=== PATIENT | male | born 1965 | race Caucasian/White ===

== ENCOUNTER 2017-12-20 17:42 | Emergency (ER) | payer MEDICAID ==
[~2017-12-20] VITALS: Ht 180.3 cm; Wt 105.8 kg
[2017-12-20 17:51] VITALS: BP 145/95
== END 2017-12-20 19:38 | disposition home or self-care (01) ==
LOC: ED 19:32
DX: M25.521 Pain in right elbow (principal); G62.9 Polyneuropathy, unspecified; I10 Essential (primary) hypertension; I82.411 Acute embolism and thrombosis of right femoral vein
CPT/HCPCS: 99284

== ENCOUNTER 2019-02-12 08:39 | Observation (INO) | payer MEDICAID ==
[~2019-02-12] VITALS: Ht 177.8 cm; Wt 111.6 kg
--- NOTE | 2019-02-12 08:59 | NUR ---
YESTERDAY AWOKE FEELING SOB AND HAD TWO BRIEF EPISODES OF SHARP LEFT CHEST PAIN WITH NUMBNESS AND TINGLING ARMS. NO COMPLAINTS AT THIS TIME
[2019-02-12] MEDS ORDERED: METO200T47 PO (09:00)
[2019-02-12] MEDS ORDERED: ASPIRIN 81 MG TABLET CHEW ONE (09:24)
[2019-02-12] MEDS ORDERED: ASPIRIN 81 MG TABLET CHEW PO ONE (09:30)
[2019-02-12 09:59] LABS: BASOPHILS # (AUTO) 0.02 x10^3/uL (0-0.1); BASOPHILS % (AUTO) 0 % (0-1); EOSINOPHILS # (AUTO) 0.26 x10^3/uL (0-0.4); EOSINOPHILS % (AUTO) 4 % (1-7); LYMPHOCYTES # (AUTO) 2.23 x10^3/uL (1-3.4); LYMPHOCYTES % (AUTO) 31 % (22-44); MD NO; MEAN CORPUSCULAR HEMOGLOBIN 32.8 pg (27.5-34.5); MEAN CORPUSCULAR HGB CONC 32.7 g/dL (33.2-36.2); MEAN CORPUSCULAR VOLUME 100.4 fL (81-97); MONOCYTES % (AUTO) 8 % (2-9); NEUTROPHILS # (AUTO) 4.08 x10^3/uL (1.8-6.8); NEUTROPHILS % (AUTO) 57 % (42-75); PLATELET COUNT 168 x10^3/uL (130-400); RED BLOOD COUNT 5.28 x10^6/uL (4.38-5.82); RED CELL DISTRIBUTION WIDTH 12.9 % (9.4-14.8)
--- NOTE | 2019-02-12 10:16 | NUR ---
CONTINUE TO MONITOR PT. NO CP AT THIS TIME
[2019-02-12 10:30] LABS: ALBUMIN 3.7 g/dL (3.4-5.0); ANION GAP 5 mmol/L (5-15); CALCIUM 8.8 mg/dL (8.5-10.1); CHLORIDE 107 mmol/L (98-107); CREATININE 0.76 mg/dL (0.7-1.3)
[2019-02-12 10:45] LABS: TROPONIN I < 0.015 ng/mL (0.000-0.045)
--- NOTE | 2019-02-12 11:31 | NUR ---
RESTING WITH EYES CLOSED
--- NOTE | 2019-02-12 12:03 | NUR ---
REPORT TO [facility]. TO BE TRANSPORTED TO FLOOR
[2019-02-12 12:31] VITALS: BP 132/86
[2019-02-12] MEDS ORDERED: ENOXAPARIN 40 MG/0.4 ML SQ SCH (13:30)
[2019-02-12] MEDS ORDERED: LABETALOL 5 MG/ML SYRINGE IVPush PRN (13:30)
[2019-02-12] MEDS ORDERED: ONDANSETRON 2MG/ML, 2ML IVPush PRN (13:30)
[2019-02-12] MEDS ORDERED: ONDANSETRON ODT 4 MG PO PRN (13:30)
[2019-02-12] MEDS ORDERED: METO25TA4 PO (13:41)
[2019-02-12 14:46] LABS: FREE T4 (FREE THYROXINE) 0.87 ng/dL (0.76-1.46)
[2019-02-12] MEDS ORDERED: POTASSIUM CHLORIDE 20 MEQ, MAGNESIUM SULFATE 1 GM, FOLIC ACID 1 MG, THIAMINE 200 MG, MV... IV SCH (15:30)
[2019-02-12 16:09] LABS: TROPONIN I < 0.015 ng/mL (0.000-0.045)
[2019-02-12 19:13] VITALS: BP_SYST 133; BP_SYST 142; BP_DIAS 84; BP_DIAS 87
[2019-02-12] MEDS ORDERED: FAMOTIDINE 20 MG/2 ML IVPush SCH (21:00)
[2019-02-12] MEDS: FAMOTIDINE 20 MG TABLET PO SCH (21:09)
[2019-02-12 21:36] LABS: TROPONIN I < 0.015 ng/mL (0.000-0.045)
[2019-02-13] MEDS ORDERED: MELA10TA7 PO (00:48)
[2019-02-13] MEDS ORDERED: MELATONIN 5 MG TABLET PO PRN (01:00)
[2019-02-13 01:14] VITALS: BP 128/78
[2019-02-13 05:18] LABS: BASOPHILS # (AUTO) 0.03 x10^3/uL (0-0.1); BASOPHILS % (AUTO) 0 % (0-1); EOSINOPHILS # (AUTO) 0.28 x10^3/uL (0-0.4); EOSINOPHILS % (AUTO) 4 % (1-7); LYMPHOCYTES # (AUTO) 2.55 x10^3/uL (1-3.4); LYMPHOCYTES % (AUTO) 32 % (22-44); MD NO; MEAN CORPUSCULAR HEMOGLOBIN 33.5 pg (27.5-34.5); MEAN CORPUSCULAR HGB CONC 33.4 g/dL (33.2-36.2); MEAN CORPUSCULAR VOLUME 100.4 fL (81-97); MEAN PLATELET VOLUME 8.3 fL (7.4-10.4); MONOCYTES # (AUTO) 0.82 x10^3/uL (0.2-0.8); MONOCYTES % (AUTO) 10 % (2-9); NEUTROPHILS # (AUTO) 4.23 x10^3/uL (1.8-6.8); NEUTROPHILS % (AUTO) 54 % (42-75); PLATELET COUNT 166 x10^3/uL (130-400); RED BLOOD COUNT 4.95 x10^6/uL (4.38-5.82); RED CELL DISTRIBUTION WIDTH 13.4 % (9.4-14.8)
[2019-02-13 05:31] LABS: ALANINE AMINOTRANSFERASE 56 U/L (12-78); ALBUMIN 3.4 g/dL (3.4-5.0); ANION GAP 6 mmol/L (5-15); CALCIUM 8.3 mg/dL (8.5-10.1); CHLORIDE 107 mmol/L (98-107); CREATININE 0.77 mg/dL (0.7-1.3)
[2019-02-13 05:42] LABS: ALKALINE PHOSPHATASE 55 U/L (45-117); BILIRUBIN,TOTAL 0.4 mg/dL (0.2-1.0); TOTAL PROTEIN 6.5 g/dL (6.4-8.2)
[2019-02-13 07:26] VITALS: BP 125/83
[2019-02-13] MEDS: FAMOTIDINE 20 MG TABLET PO SCH (07:40)
== END 2019-02-13 12:00 | disposition home or self-care (01) ==
LOC: ED 09:19 → INTOOBSV 11:11 → EDIP 11:11 → 5SO 12:18 → DCLOUNGE 02-13 11:50
PROVIDERS: ADMIT Internal Medicine; ATTEND Internal Medicine
DX: R07.89 Other chest pain (principal); I10 Essential (primary) hypertension; K21.9 Gastro-esophageal reflux disease without esophagitis; F10.129 Alcohol abuse with intoxication, unspecified; E66.9 Obesity, unspecified; R71.8 Other abnormality of red blood cells; G62.9 Polyneuropathy, unspecified; Z68.35 Body mass index [BMI] 35.0-35.9, adult
CPT/HCPCS: 36415; 71045; 80048; 80053; 82040; 83735; 83880; 84100; 84439; 84443; 84484; 85025; 93005; 93017; 93306; 96372; 99284; G0378; J1650; J3411; J3475; J3480; J7121; 99285